=== PATIENT | female | born 1995 | race Caucasian/White ===

== ENCOUNTER 2022-06-11 16:48 | Emergency (ER) | payer OTHER ==
[2022-06-11] MEDS ORDERED: Ketorolac Tromethamine 30 MG/ML VIAL ONE (19:16)
== END 2022-06-11 19:46 | disposition home or self-care (01) ==
LOC: CSHERS 16:48
DX: S16.1XXA Strain of muscle, fascia and tendon at neck level, initial encounter (principal); M54.50 Low back pain, unspecified; M54.6 Pain in thoracic spine; F17.210 Nicotine dependence, cigarettes, uncomplicated; V89.2XXA Person injured in unspecified motor-vehicle accident, traffic, initial encounter; Y92.410 Unspecified street and highway as the place of occurrence of the external cause
CPT/HCPCS: 70450; 72072; 72100; 96372; J1885

== ENCOUNTER 2022-07-19 08:59 | Emergency (ER) | payer OTHER ==
[2022-07-19] MEDS ORDERED: Dexamethasone 10 MG/ML VIAL ONE (09:30)
== END 2022-07-19 10:13 | disposition home or self-care (01) ==
LOC: CSHERS 08:59
DX: J02.9 Acute pharyngitis, unspecified (principal); F17.210 Nicotine dependence, cigarettes, uncomplicated
CPT/HCPCS: 87081; 87430; 99283; J1100